=== PATIENT | male | born 1985 | race Caucasian/White ===

== ENCOUNTER 2020-08-06 06:53 | Emergency (ER) | payer OTHER ==
[2020-08-06 08:01] LABS: HEMOGLOBIN 15.8 gm/dl (14.0-17.5); RED BLOOD COUNT 5.13 M/UL (4.20-5.50); WHITE BLOOD COUNT 7.1 K/UL (4.5-11.0)
[2020-08-06 08:18] LABS: BUN/CREATININE RATIO 10 (0-10)
== END 2020-08-06 09:00 | disposition home or self-care (01) ==
LOC: ER1 06:53
PROVIDERS: Family Medicine
DX: Z77.29 Contact with and (suspected) exposure to other hazardous substances (principal); R73.9 Hyperglycemia, unspecified
CPT/HCPCS: 80053; 80307; 85025; 99283

== ENCOUNTER 2021-09-06 14:04 | Emergency (ER) | payer BC ==
[2021-09-06 15:10] LABS: HEMOGLOBIN 16.1 gm/dl (14.0-17.5); RED BLOOD COUNT 5.17 M/UL (4.20-5.50); WHITE BLOOD COUNT 8.8 K/UL (4.5-11.0)
[2021-09-06 15:48] LABS: BUN/CREATININE RATIO 12 (0-10)
== END 2021-09-06 17:20 | disposition home or self-care (01) ==
LOC: ER1 14:04
PROVIDERS: Family Medicine
DX: R53.83 Other fatigue (principal); R00.2 Palpitations; R42 Dizziness and giddiness; Z20.822 Contact with and (suspected) exposure to COVID-19
CPT/HCPCS: 80053; 81001; 82550; 82553; 83880; 84439; 84443; 84484; 85025; 93005; 99284; U0002